=== PATIENT | female | born 1970 | race Caucasian/White ===

== ENCOUNTER 2024-09-21 12:51 | Emergency (ER) | payer OTHER, SELFPAY ==
[2024-09-21 12:55] VITALS: BP 160/91; PULSE 85; RESP 16; TEMP 36.9; O2SAT 94
--- NOTE | 2024-09-21 13:41 | ED_ITS ---
HPI - Dental/Oral 2 General: Chief complaint: Dental/Oral Stated complaint: dental Time Seen by Provider: 09/21/24 13:11 History of Present Illness: This patient is a 54-year-old white female who presents to the ER complaining of a left upper tooth ache. She states the tooth started bothering her about a week ago. She was evaluated in her doctor's clinic and was placed on amoxicillin. She states she has been taking Tylenol and Aleve. She states she does have a dentist appointment scheduled for this . Her concern today is that she woke up with swelling of the left cheek. No fever. Related Data Home Medications Medication Instructions Recorded Confirmed atorvastatin 20 mg tablet 20 mg PO DAILY 09/19/24 09/21/24 celecoxib 200 mg capsule (Celebrex) 200 mg PO DAILY 09/19/24 09/21/24 citalopram 20 mg tablet 20 mg PO DAILY 09/19/24 09/21/24 gabapentin 300 mg tablet 300 mg PO TID 09/19/24 09/21/24 levothyroxine 137 mcg tablet 137 mcg PO DAILY 09/19/24 09/21/24 loratadine 10 mg tablet 10 mg PO DAILY 09/19/24 09/21/24 zolpidem 10 mg tablet (Ambien) 10 mg PO QPM 09/19/24 09/21/24 Previous Rx's Medication Instructions Recorded clindamycin HCl 300 mg capsule 300 mg PO QID 10 days #40 caps 09/21/24 hydrocodone 5 mg-acetaminophen 325 1 tab PO Q4H PRN pain #20 tabs 09/21/24 mg tablet Allergies Allergy/AdvReac Type Severity Reaction Status Date / Time No Known Allergies Allergy Verified 09/21/24 12:58 Review of Systems 2 General: Reports: 10 or more systems reviewed and unremarkable except in HPI and below ENMT: Reports: dental pain PFSH ED 2 PFSH: Social History Smoking and tobacco/nicotine status: current every day tobacco/nicotine user Physical Exam 2 Const: COMMON NORMALS: no acute distress, patient oriented x3, no limitations and healthy appearing HENMT: FACE & SINUS IMAGES: 1. TEETH & GINGIVA: Yes other (Tooth #11 tender to percussion.) TEETH & GINGIVA IMAGES: 1. Neuro: COMMON NORMALS: patient oriented x3 Course 2 Vital Signs: Vital signs: Vital Signs Temperature 98.4 F 01/19/25 12:55 Pulse Rate 85 09/21/24 12:55 Respiratory Rate 16 09/21/24 12:55 Blood Pressure 160/91 09/21/24 12:55 Pulse Oximetry 94 09/21/24 12:55 Oxygen Delivery Me thod Room Air 09/21/24 12:55 MDM - Dental/Oral Medical Decision Making Patient appears to have a dental abscess in the left upper quadrant. I did switch her to clindamycin and placed on hydrocodone for pain. Recommended she follow-up with a dentist this coming as previously scheduled. She was discharged in stable condition. No radiology studies performed this visit Discharge Plan Discharge Patient Disposition: Home Clinical Impression: Dental abscess Condition: Stable Prescriptions: New clindamycin HCl 300 mg capsule 300 mg PO QID 10 Days Qty: 40 0RF hydrocodone-acetaminophen 5-325 mg tablet 1 tab PO Q4H PRN (Reason: pain) Qty: 20 0RF Discontinued amoxicillin-pot clavulanate 875-125 mg tablet 1 tab PO BID 7 Days Qty: 14 0RF No Action atorvastatin 20 mg tablet 20 mg PO DAILY celecoxib [Celebrex] 200 mg capsule 200 mg PO DAILY gabapentin 300 mg tablet 300 mg PO TID levothyroxine 137 mcg tablet 137 mcg PO DAILY zolpidem [Ambien] 10 mg tablet 10 mg PO QPM loratadine 10 mg tablet 10 mg PO DAILY citalopram 20 mg tablet 20 mg PO DAILY Discharge Orders: Discharge ED (Routine); Ordered 09/21/24 Ordered By: Cayden Wilson Patient Instructions: Opioid Safety, Pain Management Coding Level of Care Code ED 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
[2024-09-21 13:50] VITALS: BP 158/76; PULSE 81; O2SAT 96
== END 2024-09-21 13:51 | disposition home or self-care (01) ==
PROVIDERS: Emergency Provider Emergency Medicine
DX: K04.7 Periapical abscess without sinus (principal); Z72.0 Tobacco use
CPT/HCPCS: 99283

== ENCOUNTER 2024-10-31 13:13 | Outpatient (CLI) | payer OTHER, SELFPAY ==
[2024-10-31 14:17] LABS: Alanine Aminotransferase 20 U/L (0-33); Albumin Level 4.7 g/dL (3.5-5.2); Alkaline Phosphatase 104 U/L (35-105); Anion Gap 15.1 (5-19); Aspartate Amino Transferase 22 U/L (0-32); Blood Urea Nitrogen 14 mg/dL (6-20); Calcium 9.8 mg/dL (8.5-10.5); Carbon Dioxide 25 mmol/L (22-29); Chloride 102 mmol/L (98-107); Chol HDL Ratio 2.77 mg/dL (0.0-4.40); Cholesterol 194 mg/dL (0-200); Globulin 2.6 g/dL (1.3-4.6); Glomerular Filtration Rate 65.2 mL/min (90-130); Glucose 76 mg/dL (65-115); HDL Cholesterol 70 mg/dL (60-100); LDL Cholesterol Calculated 105 mg/dL (50-129); Osmolality Calculated 285 mOsm/kg (285-295); Potassium 4.1 mmol/L (3.5-5.1); Sodium 138 mmol/L (136-145); T3 Free 2.1 PG/ML (2.0-4.4); Thyroid Stimulating Hormone 9.19 uIU/mL (0.27-4.20); Total Bilirubin 0.4 mg/dL (0.15-1.2); Total Protein 7.3 g/dL (6.6-8.7); Triglycerides 95 mg/dL (0-150)
== END 2024-10-31 13:14 | disposition home or self-care (01) ==
LOC: LAB 13:16
DX: E03.9 Hypothyroidism, unspecified (principal); E78.5 Hyperlipidemia, unspecified
CPT/HCPCS: 36415; 80053; 80061; 84439; 84443; 84481

== ENCOUNTER → 2025-02-09 13:39 | Outpatient (BNVA) | payer OTHER, SELFPAY | DX: M25.562 Pain in left knee (principal); G57.00 Lesion of sciatic nerve, unspecified lower limb; E03.9 Hypothyroidism, unspecified | CPT/HCPCS: 73562; 80053; 84439; 84443 ==

== ENCOUNTER 2025-02-17 11:57 | Outpatient (CLI) | payer OTHER, SELFPAY ==
--- NOTE | 2025-02-17 12:15 | MR_ITS ---
WS: [id number] MRI LEFT KNEE HISTORY: left knee pain COMPARISON: Radiograph 02/09/2025 Anterior cruciate ligament: Intact. Posterior cruciate ligament: Intact. Medial collateral ligament: Interstitial tear in the medial collateral ligament. There is no full-thickness tear. There is edema and fluid in the central interstitial component of the MCL. There is also surrounding edema. Posterior lateral corner structures: Intact. Medial menisci: Complex tear posterior horn medial meniscus. Horizontal and radial components of the tear with diffuse intermediate signal throughout a large portion of the meniscus extending into the meniscal root. Anterior horn is normal. Lateral meniscus: Intact. Normal signal, size and shape. Extensor mechanism: Distal quadriceps tendon and patellar tendons are intact. Fluid and soft tissue: Small suprapatellar joint effusion. No Dempsey's cyst. Osseous and articular structures: Patellofemoral compartment: Very mild narrowing of the lateral patellofemoral joint space. There are a few very small subchondral cysts noted at the patellar eminence and the lateral patellar facet. No lateral subluxation. Medial compartment: Mild narrowing of the medial compartment. Small amount of marrow edema along the medial tibial plateau. Mild chondromalacia. Lateral compartment: Mild narrowing of the lateral compartment. Mild thinning and fissuring of the cartilage. No marrow edema. Superficial varicosities are noted surrounding the knee, greatest along the lateral and anterior knee. MR/MR knee LT wo con* [id number] IMPRESSION: 1. Complex tear posterior horn medial meniscus with extension into the menisca l root. 2. Interstitial tear within the central MCL. No full-thickness tear. 3. Mild narrowing the medial and lateral compartments. Mild chondromalacia. 4. Subchondral cysts in the patellar eminence and lateral patellar facet.
== END 2025-02-17 11:58 | disposition home or self-care (01) ==
LOC: RAD 11:58
DX: S83.232A Complex tear of medial meniscus, current injury, left knee, initial encounter (principal); S83.412A Sprain of medial collateral ligament of left knee, initial encounter; M94.262 Chondromalacia, left knee; M85.662 Other cyst of bone, left lower leg; X58.XXXA Exposure to other specified factors, initial encounter
CPT/HCPCS: 73721

== ENCOUNTER → 2025-03-10 08:00 | Outpatient (BNVA) | payer OTHER, SELFPAY | PROVIDERS: Visit Provider Student in an Organized Health Care Education/Training Program | DX: S83.242A Other tear of medial meniscus, current injury, left knee, initial encounter (principal); S83.412A Sprain of medial collateral ligament of left knee, initial encounter; M25.562 Pain in left knee; W18.49XA Other slipping, tripping and stumbling without falling, initial encounter; M17.12 Unilateral primary osteoarthritis, left knee; M25.862 Other specified joint disorders, left knee | CPT/HCPCS: 73560; 73565 ==

== ENCOUNTER 2025-04-30 09:45 | Day surgery (SDC) | payer OTHER, SELFPAY ==
[2025-04-30] VITALS (10 sets, daily range): BP systolic 100–150; BP diastolic 46–106; PULSE 74–89; RESP 11–24; TEMP 36.1–36.8; O2SAT 95–100; BMI 35.5
[2025-04-30] MEDS: acetaminophen 1,000 MG/100 ML PIGGYBACK 400 MG IV (10:39)
--- NOTE | 2025-04-30 10:39 | W.PM.OPSFHP ---
Same Day Surgery H&P Indication for Procedure/HPI DATE OF PROCEDURE: April 30, 2025 CHIEF COMPLAINT/INDICATIONFOR SURGICAL PROCEDURE: Left knee medial meniscus tear PREOP DIAGNOSIS: Left knee medial meniscus tear PLANNED PROCEDURE: Operation Date: 04/30/25 11:15 Proposed Procedures p Knee Diagnostic and Surgical Arthroscopy with PARTIAL Medial Meniscectomy vs Repair(Left) - Remington Sparks, DO Medications/Allergies* Home Medications ?Medication ?Instructions ?Recorded ?Confirmed ?Type loratadine 10 mg tablet 10 mg PO DAILY 09/19/24 04/29/25 History acetaminophen 650 mg 1,300 mg PO Q12H PRN Pain 04/29/25 04/29/25 History tablet,extended release (Tylenol Arthritis Pain) atorvastatin 20 mg tablet PO DAILY 04/29/25 History varenicline tartrate 1 mg tablet 0.5 mg PO DAILY 04/29/25 04/29/25 History Allergies/Adverse Reactions Allergy/AdvReac Type Severity Reaction Status Date / Time No Known Allergies Allergy Verified 04/29/25 13:30 Pertinent History/Comorbid Conditions* Medical History (Updated 02/18/25 @ 08:16 by Stephanie Suárez NP) Hyperlipidemia Sciatic nerve disease injections previously Anxiety and depression Encounter to establish care with new provider Hypothyroidism Psychiatric care Surgical History (Updated 09/30/24 @ 11:47 by Stephanie Suárez NP) History of partial hysterectomy age 35. still has ovaries H/O laparoscopy age 25 Hx of tonsillectomy age 10 Family History (Updated 09/30/24 @ 11:44 by Stephanie Suárez NP) Sleep apnea Father Bipolar disorder Sister Depression Sister Heart disease Mother Father Hypertension Mother Social History Smoking and tobacco/nicotine status: current some day tobacco/nicotine user (CURRENTLY QUITTING 1/2 PACK OR LESS A DAY ) Pertinent Exam Findings alert, oriented x 3, operative site marked and procedure specific exam findings Please refer to detailed orthopedic examination on 03/10/2025 listed below: left Knee Exam: -Guarded ROM secondary to pain -ROM: 0 degrees to 90 degrees -Medial joint line TTP -Mild lateral joint line TTP -TTP over retro patellar space -Positive Madison's -Negative anterior drawer -Smooth hip ROM -Palpable joint effusion Recommendations Risks and benefits of procedure reviewed and Patient/family agree to proceed Surgery/Procedure today Other Plans: Plan to proceed to the OR today for left knee diagnostic and surgical arthroscopy with partial medial meniscectomy versus repair. Patient understands the ins and outs procedure the risk benefits complication alternatives surgery and through shared decision making patient like to proceed with surgical invention. All questions answered at this time Coding Level of Care Code Acute Code for 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
--- NOTE | 2025-04-30 10:47 | ANES.PREANE2 ---
Pre-Anesthetic Assessment Height/Weight: Height 5 ft 11 in Weight 255 lb Temp Pulse Resp BP Pulse Ox O2 Del Method 98.2 F 89 16 125/88 96 Room Air 04/30/25 10:10 04/30/25 10:10 04/30/25 10:10 04/30/25 10:10 04/30/25 10:10 04/30/25 10:18 Preop Diagnosis: Left knee medial meniscus tear Operation Date: 04/30/25 11:15 Proposed Procedures p Knee Diagnostic and Surgical Arthroscopy with PARTIAL Medial Meniscectomy vs Repair(Left) - Remington Cruzatt, DO Was Beta Candace taken within 24 hours: N/A Was Clonidine taken within 24 hours: N/A Last intake: Intake Last Liquid Time 21:00 Last Solid Date 04/29/25 Last Solid Time 17:00 Social No alcohol and No tobacco Exam alert, oriented x 3, clear to auscultation bilaterally and regular rate & rhythm Airway Submandibular: within normal limits Cervical ROM: within normal limits Mallampati: Class II Dentition: full Anesthetic Plan ASA status: 2 Anesthesia: General Other: No prior issues with anesthesia NPO since yesterday evening History of hypothyroidism on Synthroid Denies any cardiac issues Stop smoking 45 days ago METs greater than 4 Plan for general anesthesia with LMA Medications/Allergies Home Medications ?Medication ?Instructions ?Recorded ?Confirmed ?Last Taken ?Type loratadine 10 mg tablet 10 mg PO DAILY 09/19/24 04/29/25 04/30/25 History citalopram 20 mg tablet 20 mg PO DAILY #30 tabs 11/27/24 04/29/25 04/30/25 Rx gabapentin 300 mg capsule 300 mg PO BID #180 caps 02/09/25 04/29/25 04/29/25 Rx hydroxyzine HCl 50 mg tablet 100 mg (2 x 50 mg) PO .HS PRN 02/26/25 04/29/25 04/27/25 Rx insomnia #60 tabs levothyroxine 137 mcg tablet 137 mcg PO DAILY #90 tabs 03/31/25 04/29/25 04/30/25 Rx celecoxib 200 mg capsule (Celebrex) 200 mg PO DAILY #90 caps 04/06/25 04/29/25 04/08/25 Rx acetaminophen 650 mg 1,300 mg PO Q12H PRN Pain 04/29/25 04/29/2504/29/25 History tablet,extended release (Tylenol Arthritis Pain) atorvastatin 20 mg tablet PO DAILY 04/29/25 04/28/25 History varenicline tartrate 1 mg tablet 0.5 mg PO DAILY 04/29/25 04/29/25 04/30/25 History hydrocodone 5 mg-acetaminophen 325 1 tab PO Q6H PRN pain 5 days #20 04/30/25 Unknown Rx mg tablet tabs Allergies Allergy/AdvReac Type Severity Reaction Status Date / Time No Known Allergies Allergy Verified 04/29/25 13:30 [facility] Anesthesia Medical History Hyperlipidemia Sciatic nerve disease injections previously Anxiety and depression Encounter to establish care with new provider Hypothyroidism Psychiatric care Surgical History History of partial hysterectomy age 35. still has ovaries H/O laparoscopy age 25 Hx of tonsillectomy age 10 Family History Mother Heart disease Hypertension Father Heart disease Sleep apnea Sister Depression Bipolar disorder Social History Smoking and tobacco/nicotine status: current some day tobacco/nicotine user (CURRENTLY QUITTING 1/2 PACK OR LESS A DAY )
[2025-04-30] MEDS: ceFAZolin 2,000 MG in sodium chloride 0.9% (plus) 50 ML 100 MG IV (11:25)
[2025-04-30] MEDS: lidocaine-epi 2% PF 1:200,000 20 mL SDV 40 ML INJECTION (12:14)
--- NOTE | 2025-04-30 12:37 | PM.OP ---
Operative Report Date of procedure: April 30, 2025 Surgeon: Remington Sparks DO Senior Information Systems Architect: Armani Sparks PA-C: PA was necessary for assistance in this case with leg positioning, assistance with arthroscopic instrumentation to perform partial meniscectomy, as well as assistance in wound closure and dressing application. Procedure: Preoperative diagnosis Left knee medial meniscus tear Post-op diagnosis: Left knee chondromalacia, partial tear of medial meniscus and extensive synovitis Procedure done: Left?knee?diagnostic and surgical arthroscopy partial medial meniscectomy Left?knee?diagnostic and surgical arthroscopy with extensive synovectomy of the medial lateral and patellofemoral compartments Left?knee?diagnostic and surgical arthroscopy with medial and patellofemoral compartment chondroplasty Surgeon: Remington Sparks DO Estimated blood loss: 5 mL Tourniquet: No tourniquet was used IV fluids: See anesthesia record Complications: None Findings: See operative report narrative Condition: stable Disposition: same day Brief History: Patient is a 54-year-old Female with Left?knee?pain.? Patient has failed conservative treatment who has been worked up for Left??knee?pain in the outpatient setting. MRI findings consistent with tear of the medial meniscus. talked in the office about treatment options patient would like to proceed with a Left?knee?diagnostic and surgical arthroscopy with partial medial meniscectomy versus repair.? Patient understand the ins and outs of the procedure the risk benefits complication alternatives to treatment options.? Understanding risk of surgery they agree to proceed with surgical intervention.? Patient understand this may not provide patient with complete symptomatic relief of? pain as patient does have some underlying arthritis.? Understanding this and patient agree to proceed with surgical intervention all questions answered. Procedure: Patient seen and evaluated in the preoperative holding area.? Consent was reviewed and signed with patient.? Correct extremity was then marked.? Patient seen evaluated Anesthesia Department once cleared for surgery patient was taken back to the operative suite.? Patient was transported onto the OR table in supine position.? All bony prominences well-padded patient was appropriate secured to the bed.? Once appropriately anesthetized a nonsterile tourniquet was applied to the Left thigh.? The Left lower extremity was then prepped and draped in standard orthopedic fashion.? Final timeout performed.? Patient received appropriate preoperative antibiotics. Patient received local anesthetic of lidocaine with epinephrine into the joint as well as around the portal sites.? No tourniquet was inflated A standard 2 portal vertical incision diagnostic and surgical arthroscopy of the Left?knee?was performed in standard fashion.? Small stab incision made in the inferolateral portal introduced trocar and arthroscope into the suprapatellar pouch.? Suprapatellar pouch was subsequently visualized and found to have significant synovitis but no loose bodies.? Patient had noticeable significant inflamed infrapatellar fat pad and thickening hypertrophic within the patellofemoral compartment.? ?The medial gutter was free of loose bodies I then introduced the arthroscope into the medial compartment.? Within the medial compartment I then established my inferior medial working portal utilizing spinal needle outside in technique.? Once established I then visualized our articular cartilage of the medial compartment with a valgus stress.? Patient was found to have grade 2-3 chondromalacia throughout the medial compartment.? Next I inspected the meniscus.? With an arthroscopic probe was utilized to visual? all aspects of the meniscus.? Meniscal root was found to be intact.? Meniscus was found to be torn at the body to posterior horn junction.? I then subsequently introduced a basket forceps as well as arthroscopic shaver to perform a partial medial meniscectomy to stable meniscal tissue and then utilized a thermal wand to anneal the edges.? Next, I then performed a synovectomy of the medial compartment.? Given patient's chondromalacia there was areas of unstable articular cartilage and I subsequently performed a chondroplasty with arthroscopic shaver and thermal wand.? This completed medial compartment work. Next a introduced the arthroscope to the intercondylar notch.? PCL and ACL were intact. patient had significant thickening of the infrapatellar fat pad spanning into the medial and lateral compartments.? I then performed an extensive synovectomy with the arthroscopic shaver of the patellofemoral medial and lateral compartments as well as the intercondylar notch. Advance the?scope?into the retrocruciate space and no loose bodies were found. Next I introduced the arthroscope into the lateral compartment the lateral compartment was found to have grade 1-2 chondromalacia.? Lateral meniscus was found to be intact.? The root was intact.? Given the grade 1-2 chondromalacia there is no unstable cartilage pieces to perform chondroplasty.? This completed my work of the lateral compartment and then performed a synovectomy of the lateral compartment.? Next of the arthroscope was placed into the lateral gutter and this was free of loose bodies.? Finally I reintroduced the arthroscope into the patellofemoral compartment.? The patellofemoral was found to have grade 2 chondromalacia of the patellofemoral compartment.? There was a focal area of grade 2 in the trochlear groove utilized a thermal wand and arthroscopic shaver to make this to stable articular tissue. At this point in time this completed patellofemoral compartment chondroplasty. At this point I utilized arthroscopic shaver as well as thermal wand to perform extensive synovectomy of the patellofemoral compartment. This completed my work of the patellofemoral space.? I then switch my portal sites to the medial working portal.? Completed the rest of my synovectomy and the rest of my examination arthroscopy was normal. All fluid was suctioned from the joint.? ?All instruments were withdrawn.? Portal sites were closed with interrupted nylon suture.? portal sites were then covered with with Xeroform 4 x 4's ABD Curlex and Mark wrap.? Patient was then subsequently awakened from anesthesia and taken to PACU in stable condition. Disposition: Patient taken to PACU in stable condition recovering well.? Will receive appropriate discharge structure as well as pain medication postoperatively as well as? DVT prophylaxis.we will have patient follow-up with us in the office in 2 weeks.? We will weightbearing as tolerated to the Left lower extremity.? Patient understands and agrees with current plan.? All questions answered.
--- NOTE | 2025-04-30 12:38 | P.BOP_ITS ---
Date of Procedure: [April 30, 2025 ] Surgeon: [Dr. Sparks DO] Dispatcher Street Department(s): [Armani Sparks PA-C] Procedure(s) performed: [Left knee diagnostic and surgical arthroscopy Partial medial meniscectomy Extensive synovectomy Patellofemoral and medial chondroplasty] Findings of the procedure(s): [Left knee chondromalacia, partial tear of medial meniscus and extensive synovitis. Procedure went well and is planned] Estimated blood loss: [5 mL] Specimen(s) removed: [N/A] Post-operative diagnosis: [Left knee chondromalacia, partial tear of medial meniscus and extensive synovitis.]
--- NOTE | 2025-04-30 12:42 | PM.PACU ---
PACU note Narrative: Patient is a 54 female just underwent a left knee diagnosed surgical arthroscopy. Pt transferred to PACU in stable condition. Dressing is dry. pt is awake and alert. pt can wiggle toes and plantarflex and dorsiflex foot. pt able to perform straight leg raise, Femoral nerve intact. Distal pulses are palpable toes are warm and well-perfused. Cap refill is normal and under 2 seconds. Sensation to foot is intact. Pain is controlled. Exam: awake Disposition: discharged
--- NOTE | 2025-04-30 13:18 | SUR.PHASEII ---
GOOD CAP REFILL, ROM, AND SENSATION OF LEFT TOES.
--- NOTE | 2025-04-30 14:00 | ANE.PACU2 ---
Inpatient post-anesthesia follow up: Airway intact: Yes Vital signs: Temperature 97.7 F Pulse Rate 77 Respiratory Rate 14 Blood Pressure 131/86 Pulse Oximetry 99 Oxygen Delivery Me thod Room Air Oxygen Flow Rate 8 Fraction of Inspir ed Oxygen Hydration adequate: Yes Nausea and vomiting: No Pain level: 1 Mental status: Baseline
== END 2025-04-30 14:00 | disposition home or self-care (01) ==
PROVIDERS: Visit Provider Student in an Organized Health Care Education/Training Program
PROC: (CPT 29876; principal; 2025-04-30 11:15)
PROC: (CPT 29876; 2025-04-30 11:15)
DX: S83.242A Other tear of medial meniscus, current injury, left knee, initial encounter (principal); X58.XXXA Exposure to other specified factors, initial encounter; M94.262 Chondromalacia, left knee; M65.162 Other infective (teno)synovitis, left knee; E03.9 Hypothyroidism, unspecified; E78.5 Hyperlipidemia, unspecified; F41.8 Other specified anxiety disorders; F17.210 Nicotine dependence, cigarettes, uncomplicated
CPT/HCPCS: 29876; 29881; J0131; J0690; J1100; J1885; J2250; J2405; J2704; J3010; J7030; J9999

== ENCOUNTER 2025-05-14 09:51 | Outpatient (RCR) | payer OTHER, SELFPAY | END 2025-06-02 23:59 | disposition home or self-care (01) | LOC: SPT 09:51 | PROVIDERS: Visit Provider Physician Assistant | DX: Z47.1 Aftercare following joint replacement surgery (principal); Z96.652 Presence of left artificial knee joint | CPT/HCPCS: 97110; 97161; 97530; G0283 ==

== ENCOUNTER 2025-06-03 06:30 | Outpatient (RCR) | payer OTHER, SELFPAY | END 2025-06-11 11:09 | disposition home or self-care (01) | LOC: SPT 06:30 | PROVIDERS: Visit Provider Physician Assistant | DX: Z47.1 Aftercare following joint replacement surgery (principal); Z96.652 Presence of left artificial knee joint | CPT/HCPCS: 97110; 97530 ==

== ENCOUNTER 2025-06-18 19:08 | Emergency (ER) | payer OTHER, SELFPAY ==
--- NOTE | 2025-06-18 19:11 | USR_ITS ---
PROCEDURE INFORMATION: Exam: US Duplex Left Lower Extremity Veins, Limited Exam date and time: 06/18/2025 9:01 PM Age: 54 years old Clinical indication: Pain; Leg, lower; Prior surgery; Surgery date: 1-6 months; Surgery type: History of left knee meniscus repair April 30, 2025; Additional info: Left leg swelling TECHNIQUE: Imaging protocol: Real-time duplex ultrasound of the left extremity with 2-D justice scale, color Doppler flow and spectral waveform analysis including responses to compression and other maneuvers (when performed) with image documentation. Limited exam focused on the left lower extremity veins. COMPARISON: MR knee LT wo con* [id number] 02/17/2025 12:18 PM FINDINGS: Left deep veins: Unremarkable. The common femoral, femoral, proximal profunda femoral and popliteal veins are patent without thrombus. Normal Doppler waveforms. Normal compressibility and/or augmentation response. Superficial veins: Greater saphenous vein at the saphenofemoral junction is patent without thrombus. Soft tissues: Unremarkable. US/CV venous duplex [facility] [id number] IMPRESSION: No evidence of deep vein thrombosis.
--- OUTSIDE RECORDS SUMMARY | 2025-06-18 19:14 | XMS_ITS | Patient Health Record ---
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 Name Role Phone NAREN NEWTON Unavailable [phone] Klaudia ROSARIO, Zay Unavailable Unavailable Allergies No Known Allergies Reason For Referral No Information Medications Medication SIG (Take, Route, Frequency, Duration) Notes Start Date End Date Status Temazepam 15 MG Capsule Oral; Duration: 30 Active Gabapentin 300 MG Capsule Oral; Duration: 30 Active Citalopram Hydrobromide 20 MG Tablet Oral; Duration: 30 Active Levothyroxine Sodium 137 MCG Tablet Oral; Duration: 30 Active Celecoxib 200 MG Capsule Oral; Duration: 30 Active buPROPion HCl ER (XL) 150 MG Tablet Extended Release 24 Hour Oral; Duration: 30 Active Social History Tobacco Use: Social History Observation Description Date Details (start date - stop date) Current Smoker NA - NA Social History Tobacco Use: Social Info Question Answer Notes Smoking Are you a: current smoker Problems Problem Type SNOMED Code ICD Code Onset Dates Problem Status W/U Status Risk Notes Problem Chronic rhinitis (79887218) Chronic rhinitis (J31.0) Active confirmed Problem Dysfunction of both eustachian tubes (642377173328324 0) Dysfunction of both eustachian tubes (H69.83) Active confirmed Problem Sialadenitis (14784498) Sialadenitis (K11.20) Active confirmed Plan Of Treatment No Information Insurance Providers Payer Name Payer Address Payer Phone Subscriber Number Group Number Insured Name Patient Relationship to Insured Coverage Start Date Coverage End Date [employer] [address] [place] [phone] [id number] Constance Guzman Self - patient is the insured 2 Medical (General) History Medical History History ICD Code thyroid dysncunction anxiety arthritis neuralgia Surgical History Surgery Date(Month/Year) laparoscopy 1994 partial hysterectomy tonsillectomy
[2025-06-18 19:20] VITALS: BP 141/91; PULSE 82; RESP 18; TEMP 36.8; O2SAT 97
--- NOTE | 2025-06-18 20:59 | ED_ITS ---
HPI - Extremity Problem General: Chief complaint: Extremity Injury, Lower Stated complaint: Post Surgery\Left Leg Swollen Time Seen by Provider: 06/18/25 19:40 Source: patient Mode of arrival: ambulatory Limitations: no limitations History of Present Illness: Patient is a 54-year-old female who presents emergency department complaining of left knee pain for the past couple of days. She had meniscus repair on April [address] Sparks, states that she underwent physical therapy afterwards and has healed well overall but had the sudden onset where she states no trauma, this has been const for the past couple days and has made walking difficult and she is noted to have a limp into the emergency department. She notes that she started to have swelling from her left knee down to her foot. No calf tenderness, no skin coolness or pallor. Denies history of blood clots. No fevers at home. No redness or warmth of the left knee joint. MD Complaint: joint pain Onset (ago): day(s) Pain Consistency: constant Location: left and knee Associated symptoms: Deny chest pain, fever(s) or rash Context: recent surgery/procedure Related Data Home Medications ?Medication ?Instructions ?Recorded ?Confirmed loratadine 10 mg tablet 10 mg PO DAILY 09/19/2405/05 acetaminophen 650 mg 1,300 mg PO Q12H PRN Pain 05/27/25 tablet,extended release (Tylenol Arthritis Pain) Previous Rx's ?Medication ?Instructions ?Recorded citalopram 20 mg tablet 20 mg PO DAILY #30 tabs 11/02 03/27 gabapentin 300 mg capsule 300 mg PO BID #180 caps 05/28 hydroxyzine HCl 50 mg tablet 100 mg (2 x 50 mg) PO .HS PRN 02/26/25 insomnia #60 tabs levothyroxine 137 mcg tablet 137 mcg PO DAILY #90 tabs 03/31/25 celecoxib 200 mg capsule (Celebrex) 200 mg PO DAILY #9 0 caps 04/06/25 atorvastatin 20 mg tablet See Rx Instructions .Route 0 05/25/25 .COMPLEX #90 tabs varenicline tartrate 0.5 mg tablet 0.5 mg PO BID #60 t abs 05/25/25 Allergies Allergy/AdvReac Type Severity Reaction Status Date / Time No Known Allergies Allergy Verified 05/27/25 10:53 Review of Systems General: Reports: 10 or more systems reviewed and unremarkable except in HPI and below Const: Denies: fever(s) or chills Card: Denies: chest pain Resp: Denies: dyspnea or productive cough GI: Denies: abdominal pain, nausea, vomiting or diarrhea : Denies: flank pain Musc: Reports: extremity swelling (LLE), joint pain (left knee) and joint swelling (left knee); Denies: neck pain, back pain, extremity pain, joint redness, joint warmth, limited range of motion or muscle weakness Skin/Breast: Denies: rash Neuro: Reports: difficulty walking; Denies: headache(s), numbness in extremities or weakness in extremities PFSH ED PFSH: Medical History Hyperlipidemia Sciatic nerve disease injections previously Anxiety and depression Encounter to establish care with new provider Hypothyroidism Psychiatric care Surgical History History of partial hysterectomy age 35. still has ovaries H/O laparoscopy age 25 Hx of tonsillectomy age 10 Family History Mother Heart disease Hypertension Father Heart disease Sleep apnea Sister Depression Bipolar disorder Social History Smoking and tobacco/nicotine status: former use of tobacco/nicotine Physical Exam Const: COMMON NORMALS: no acute distress, patient oriented x3, no limitations, healthy appearing, alert and well nourished HENMT: COMMON NORMALS: normocephalic and atraumatic HEAD & SCALP: normoceph alic and atraumatic Neck/C-Spine: COMMON NORMALS: full ROM, supple and no meningeal signs Resp: COMMON NORMALS: normal respiratory effort, No use of accessory muscles and clear to auscultation bilaterally AUSCULTATION: clear to auscultation bilaterally Cardio: COMMON NORMALS: regular rate and regular rhythm RATE: regular rate RHYTHM: regular rhythm Extremity: COMMON NORMALS: full ROM NARRATIVE EXTREMITY EXAM: Antalgic gait into emergency department. Postoperative laparoscopic incisions to left anterior knee. Tender to palpation to medial left knee. Mild swelling noted distally in the left lower extremity. Distal pulses palpable. There is no calf tenderness, negative Homans' sign. No redness, coolness, pallor of the left lower extremity. Full range of motion at the knee. Neuro: COMMON NORMALS: patient oriented x3, moves all extremities, no focal motor deficits and no sensory deficits noted SENSORIUM/ORIENTATION: Yes alert MENINGEAL SIGNS: Yes no meningeal signs Skin: COMMON NORMALS: no rashes or lesions noted GENERAL SKIN EXAM: no rashes or lesions noted Course Vital Signs: Vital signs: Vital Signs Temperature 98.2 F 06/18/25 19:20 Pulse Rate 82 06/18/25 19:20 Respiratory Rate 18 06/18/25 19:20 Blood Pressure 141/91 06/18/25 19:20 Pulse Oximetry 97 06/18/25 19:20 Oxygen Delivery Me thod Room Air 06/18/25 19:20 MDM - Extremity (Nontraumatic) Medical Decision Making This patient presented for left knee pain for the past couple days, history of surgery in April where she had meniscal repair. She had completed physical therapy and notes that she had been doing better until this cryptic onset. Had noted some swelling that is worsening as well, on exam there is mild swelling noted overall tender to palpation to the medial aspect of the knee however no appreciable joint instability or concerning infectious findings. Being that she is postoperative and with the swelling, ultrasound was ordered which does not show any DVT. X-ray the knee does show medial knee compartment narrowing that is deemed degenerative related, however no acute fracture dislocation or joint effusion. She has mild improvement after Toradol Decadron here, though there is no emergent process she is encouraged to follow back up with orthopedics due to her persistence of pain for reevaluation from that standpoint. She agrees with this plan. Lab Data Radiology Impressions Venous Duplex 06/18/25 19:11 IMPRESSION: No evidence of deep vein thrombosis. Knee X-Ray 06/18/25 21:48 IMPRESSION: Medial knee compartmental narrowing present degenerative related No acute fracture or dislocation No joint effusion All radiology interpretation(s) finalized by discharge Discharge Plan Discharge Patient Disposition: Home Clinical Impression: Acute pain of left knee Condition: Stable Prescriptions: No Action hydroxyzine HCl 50 mg tablet 100 mg PO .HS PRN (Reason: insomnia) Qty: 60 11RF varenicline tartrate 0.5 mg tablet 0.5 mg PO BID Qty: 60 11RF loratadine 10 mg tablet 10 mg PO DAILY citalopram 20 mg tablet 20 mg PO DAILY Qty: 30 11RF gabapentin 300 mg capsule 300 mg PO BID Qty: 180 1RF levothyroxine 137 mcg tablet 137 mcg PO DAILY Qty: 90 1RF celecoxib [Celebrex] 200 mg capsule 200 mg PO DAILY Qty: 90 1RF atorvastatin 20 mg tablet See Rx Instructions .ROUTE .COMPLEX Qty: 90 0RF Dose Instruction: TAKE ONE TABLET BY MOUTH DAILY Rx Instructions: TAKE ONE TABLET BY MOUTH DAILY acetaminophen [Tylenol Arthritis Pain] 650 mg Tablet Extended Release 1,300 mg PO Q12H PRN (Reason: Pain) Discharge Orders: Discharge ED (Routine); Ordered 06/18/25 Ordered By: Silvestre Baer Referrals: Stephanie Suárez NP [Primary Care Provider, Family Practice] Patient Instructions: Patient Portal & [place] Instructions Activity Restrictions/Additional Instructions: Please follow-up with orthopedist. Return with any new or worsening of symptoms. Take Motrin and Tylenol. Rest, ice, compression, and elevation of the left lower extremity. 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
--- NOTE | 2025-06-18 21:48 | XRR_ITS ---
PROCEDURE INFORMATION: Exam: XR Left Knee Exam date and time: 06/18/2025 9:47 PM Age: 54 years old Clinical indication: Pain; Knee; Left TECHNIQUE: Imaging protocol: Radiologic exam of the left knee. Views: 3 views. COMPARISON: CR XR knees AP WB w LT lmt ORTH 03/10/2025 8:05 AM FINDINGS: Bones/joints: Medial compartmental narrowing present on the left knee degenerative related. No acute fracture or dislocation Soft tissues: Normal. XR/XR knee LT 3V* [id number] IMPRESSION: Medial knee compartmental narrowing present degenerative related No acute fracture or dislocation No joint effusion
== END 2025-06-18 22:27 | disposition home or self-care (01) ==
PROVIDERS: Emergency Provider Physician Assistant
DX: M25.562 Pain in left knee (principal); Z87.891 Personal history of nicotine dependence; E78.5 Hyperlipidemia, unspecified
CPT/HCPCS: 73562; 93971; 96372; 99284; J1100; J1885

== ENCOUNTER 2025-06-23 11:06 | Outpatient (CLI) | payer OTHER, SELFPAY | END 2025-06-23 11:07 | disposition home or self-care (01) | LOC: SPT 11:07 | PROVIDERS: Visit Provider Physician Assistant | DX: Z47.89 Encounter for other orthopedic aftercare (principal); Z98.890 Other specified postprocedural states; M25.562 Pain in left knee | CPT/HCPCS: L1851 ==

== ENCOUNTER 2025-08-06 11:38 | Outpatient (CLI) | payer OTHER, SELFPAY ==
--- NOTE | 2025-08-06 11:43 | XR_ITS ---
WS: [id number] Exam: XR elbow LT min 3V* [id number] Date/Time of Exam: 08/06/2025 11:58 AM Reason For Exam: left arm pain DLP: No acute fracture. The joints are preserved. No joint effusion. Normal soft tissues. XR/XR elbow LT min 3V* [id number] IMPRESSION: 1. Negative LEFT elbow.
== END 2025-08-06 11:39 | disposition home or self-care (01) ==
LOC: RAD 11:39
DX: Z12.31 Encounter for screening mammogram for malignant neoplasm of breast (principal); M79.602 Pain in left arm
CPT/HCPCS: 73080; 77063; 77067

== ENCOUNTER 2025-09-01 14:15 | Outpatient (CLI) | payer OTHER, SELFPAY | END 2025-09-01 14:16 | disposition home or self-care (01) | LOC: SLEEP 14:16 | PROVIDERS: Referring Provider Pediatrics; Visit Provider Internal Medicine Pulmonary Disease | DX: R06.83 Snoring (principal) | CPT/HCPCS: G0399 ==